=== PATIENT | male | born 1970 | race Caucasian/White ===

== ENCOUNTER 2016-08-23 12:02 | Emergency (ER) | payer MEDICARE ==
[2016-08-23] MEDS ORDERED: DEXAMETHASONE SOD PHOS INJ 10 MG/1 ML VIAL IV ONE (13:04)
[2016-08-23] MEDS ORDERED: MORPHINE SULFATE 10 MG/ML INJ IV PRN ×2 (13:04→15:33)
[2016-08-23] MEDS ORDERED: ONDANSETRON HCL INJ/PF 4 MG/2 ML SDV IV ONE ×2 (13:07→15:33)
[2016-08-23] MEDS ORDERED: NORMAL SALINE 1000 ML 1,000 ML IV PRN (13:07)
--- NOTE | 2016-08-23 13:10 | ER Document Report ---
ED Neck/Back Problem - General Chief Complaint: Back Pain Stated Complaint: BACK PAIN,ABDOMINAL PAIN Time seen by provider: 13:08 Mode of Arrival: Medic Information source: Patient Notes: This is a 45-year-old man with chronic back pain with chronic radiculopathy who presents to the emergency room with an exacerbation of back pain. Patient states he felt short of breath because he had a lot of spasm when he tried to move. He states he gets these exacerbations every once in a while. He does state that he has had 2 surgeries in the past and that he is followed by [facility] and at this time he was referred to pain management for nonoperative management. Patient denies any recent fever, chills, nausea vomiting. Initial reports on the EMS sheet states that he was "numb from the waist down". Patient states that every single day he has pins and needles tingling sensation down both legs and that has not changed. He states he can feel in the lower extremities. He denies any bladder or bowel dysfunction. TRAVEL OUTSIDE OF THE [place] IN LAST 30 DAYS: No - HPI Onset: Yesterday Where: Home Onset: Gradual Timing: Constant Quality of pain: Dull Severity: Moderate Pain Level: 4 Context: Turning Recent injury: No Associated symptoms: Lower back pain. denies: Chest pain Exacerbated by: Movement of trunk Relieved by: Remaining still Similar symptoms previously: Yes Recently seen / treated by doctor: No - Related Data Allergies/Adverse Reactions: fentanyl [From Duragesic] Allergy (Severe, Verified 09/09/15 17:00) latex [Latex] Allergy (Verified 09/09/15 16:58) methadone [Methadone] Allergy (Verified 09/09/15 16:58) Past Medical History - General Information source: Patient - Social History Smoking Status: Current Every Day Smoker Cigarette use (# per day): Yes Chew tobacco use (# tins/day): No Frequency of alcohol use: None Drug Abuse: None Lives with: Family Family History: Reviewed & Not Pertinent Patient has suicidal ideation: No Patient has homicidal ideation: No - Past Medical History Cardiac Medical History: Reports: None Pulmonary Medical History: Reports: None EENT Medical History: Reports: None Neurological Medical History: Reports: None Endocrine Medical History: Reports: None Renal/ Medical History: Reports: None Malignancy Medical History: Reports None GI Medical History: Reports: None Musculoskeltal Medical History: Reports Other - Chronic low back pain with radiculopathy. Patient does report frequent exacerbations. Skin Medical History: Reports None Psychiatric Medical History: Reports: Hx Depression Traumatic Medical History: Reports: Hx Spine Fracture Past Surgical History: Reports: Hx Orthopedic Surgery - BACK SURGERY X 2. HAND AND KNEE SURGERY. - Immunizations Hx Diphtheria, Pertussis, Tetanus Vaccination: No Review of Systems - Review of Systems Notes: Review of systems: Constitutional: Denies fever, chills. EENT: Denies ear pain, sinus tenderness, throat pain, throat swelling. Cardiovascular: Denies chest pain, palpitations, dyspnea or edema. Respiratory: Denies wheezing, cough, hemoptysis. Abdomen: Denies abdominal pain, nausea, vomiting, diarrhea. Denies BRBPR or melena. Denies fecal incontinence. Genitourinary: Denies urinary incontinence, urinary retention, dysuria, pyuria, hematuria, flank pain. Musculoskeletal: History of chronic low back pain. He does have history of radiculopathy. He says that the symptoms are consistent with an acute exacerbation which she's had similar events in the past. Neurologic: He has known radiculopathy. He does have chronic paresthesias to the lower extremities bilaterally. Denies saddle anesthesia. Denies problems with bowel movements. Skin: Denies rash, lesions. Physical Exam - Vital signs Vitals: Temp Pulse Resp BP Pulse Ox 97.8 F 98 15 150/91 H 100 08/23/16 13:04 08/23/16 13:04 08/23/16 13:04 08/23/16 13:04 08/23/16 13:04 Notes: Physical exam: GENERAL: 45-year-old man, alert and oriented 3, no acute distress. HEAD: Atraumatic, normocephalic. EYES: Pupils equal round and reactive to light, extraocular movements intact, sclera anicteric, conjunctiva are normal. ENT: TMs normal, nares patent, oropharynx clear without exudates. Moist mucous membranes. NECK: Normal range of motion, supple without lymphadenopathy or JVD. LUNGS: Breath sounds clear to auscultation bilaterally and equal. No wheezes rales or rhonchi. HEART: Regular rate and rhythm without murmurs, rubs or gallops. ABDOMEN: Soft, normoactive bowel sounds. No tenderness to palpation. No guarding, no rebound. No masses appreciated. Back: Patient does have evidence of 2 lumbar surgeries in the past. Does have tenderness with muscle spasm to the back. Positive straight leg raising bilaterally at 20. He can move his lower extremities. He does have sensation to the lower extremities. EXTREMITIES: Normal range of motion, no pitting or edema. No clubbing or cyanosis. NEUROLOGICAL: Cranial nerves II through XII grossly intact. Normal speech, normal gait. PSYCH: Normal mood, normal affect. SKIN: Warm, Dry, normal turgor, no rashes or lesions noted. Course - Vital Signs Vital signs: Temp Pulse Resp BP Pulse Ox 97.2 F 90 16 151/101 H 97 08/23/16 16:24 08/23/16 16:24 08/23/16 16:24 08/23/16 16:24 08/23/16 16:24 Discharge - Discharge Clinical Impression: acute back pain Condition: Stable Disposition: HOME, SELF-CARE Instructions: Oral Narcotic Medication ([facility]), Pain Medication Injection ([facility]) Additional Instructions: Recommendations: Take the steroids as prescribed: Start tomorrow. Take oxycodone as prescribed. See the narcotic instruction sheet. Follow-up with your back surgeon. Return to the emergency room for worsening pain, difficulty with your bladder or bowels, weakness to the lower extremities, or any concerns he getting worse. The pain medicine you're taking prescribed as a narcotic. There are several important things you should know about this medicine: 1. Taking narcotics for too long can lead to physical and mental dependence. Take this medicine only if really needed and in the lowest quantity to achieve pain relief. 2. Do not drink alcohol while on this medicine. Alcohol interacts with narcotics and the combination can be dangerous. 3. Do not drive or operate machinery while on this medicine. 4. Narcotics do cause constipation, so drink plenty of fluids and daily stool softeners. Prescriptions: Oxycodone HCl 5 mg PO Q6HP PRN #25 tablet PRN Reason: Methylprednisolone [Medrol 4 mg Dosepack 21 Tab/Pack] 4 mg PO ASDIR PRN #21 tab.ds.pk PRN Reason:
[2016-08-23 16:26] VITALS: BP 151/101
== END 2016-08-23 16:24 | disposition home or self-care (01) ==
LOC: ER 12:02
DX: M54.9 Dorsalgia, unspecified (principal); R10.9 Unspecified abdominal pain; F17.210 Nicotine dependence, cigarettes, uncomplicated
CPT/HCPCS: 96376; 99283; 96361; 96374; 96375; J2270; J2405; J7030; J1100